=== PATIENT | male | born 1975 | race Caucasian/White ===

== ENCOUNTER 2016-06-13 05:49 | Emergency (ER) | payer SELFPAY ==
--- NOTE | 2016-06-13 07:32 | EDDOCDS ---
Nurse's Notes [facility] Name: Kishore Vanessa Age: 41 yrs Sex: Male : 1975 Arrival Date: 06/13/2016 Time: 05:49 Bed 9 Private MD: Diagnosis: Acute nasopharyngitis [common cold];Low back pain Presentation: 06/13 05:54 Presenting complaint: Patient states: cough for 4-5 days ago fever chills sinus cz headache pt has not had a flu shot. Adult Sepsis Screening: The patient does not have new or worsening altered mentation. Patient's respiratory rate is less than 22. Systolic blood pressure is greater than 100. Patient has a qSOFA score of 0- Negative Sepsis Screen. Suicide/Homicide risk assessment- the patient denies having any suicidal and/or homicidal ideations and does not present with any other emotional, behavioral or mental health complaints. Status: Patient is not a maintenance service dispatcher or dependent. Transition of care: patient was not received from another setting of care. 05:54 Method Of Arrival: Walkin/Carried/Asstd cz 06:01 Acuity: EMILY Level 4 cz Triage Assessment: 05:56 General: Appears uncomfortable. Pain: Location: back Pain currently is 8 out of 10 on a cz pain scale. HIV screening NA for this visit Offered previously. Historical: - Allergies: No known drug Allergies; - Home Meds: 1. none - PMHx: back pain; L4/L5 compound fracture; - PSHx: dental surgery; - Social history: Smoking status: Patient uses tobacco products, light tobacco smoker. No barriers to communication noted, The patient speaks fluent Irish, Speaks appropriately for age. - Family history: Not pertinent. - : The pt / caregiver states he / she is not on anticoagulants. Home medication list is obtained from the patient. - Exposure Risk Screening:: None identified. Screenin:13 Screening information is obtained from the patient. Fall risk: No risks identified. ko2 Assistance ADL's: requires no assistance with activities of daily living. Abuse/DV Screen: The patient / caregiver reports he/she is: not in a situation that causes fear, pain or injury. Nutritional screening: No deficits noted. Advance Directives: Currently, there is no health care proxy. There is no active DNR order. There is no living will. There is no Power of Warp Clamper. home support is adequate. Assessment: 06:12 General: Appears in no apparent distress, Behavior is appropriate for age, cooperative. ko2 Neurological: Level of Consciousness is awake, alert, Oriented to person, place, time. Respiratory: Airway is patent. Derm: Skin is normal. 07:29 General: Appears in no apparent distress, Behavior is cooperative. Pain: Location: jc4 back. Neurological: Level of Consciousness is awake, alert, Oriented to person, place, time. Respiratory: Airway is patent Respiratory effort is even, unlabored, Respiratory pattern is regular, symmetrical. Derm: Skin is pink, warm & dry. Vital Signs: 05:56 BP 131 / 84; Pulse 94; Resp 16; Temp 100.8(T); Pulse Ox 99% on R/A; Weight 74.84 kg; cz Height 5 ft. 6 in. (167.64 cm); 07:18 BP 123 / 90; Pulse 90; Resp 18; Temp 99.2(TE); Pulse Ox 97% on R/A; Pain 9/10; dem1 05:56 Body Mass Index 26.63 (74.84 kg, 167.64 cm) Vitals: 05:56 Log In Time: June 13, 2016 at 05:51. ED Course: 05:50 Patient visited by Jannet Tesfaye. lja 05:50 Patient moved to Waiting lja 05:55 Triage Initiated cz 05:58 Greer Sandoval,RN is Primary Nurse. cz 05:58 Patient moved to 9 cz 06:12 Patient visited by Greer Sandoval RN. ko2 06:55 Gelacio Tello PA is PHCP. btw 06:55 Latanya Lares MD is Attending Physician. btw 06:55 Patient visited by Gelacio Tello PA. btw 07:00 Nanda Hicks, OLIVER is Primary Nurse. jc4 07:06 [facility] [place] into [employer] and attached to record. hs2 07:12 [facility] is Referral Physician. btw 07:18 Patient visited by Parker Monroy. dem1 07:28 The patient / caregiver is instructed regarding the plan of care and ED course. jc4 07:30 No IV's were initiated during this patient's visit. No procedures done that require jc4 assistance. Order Results: There are currently no results for this order. Outcome: 07:12 Discharge ordered by Provider. bt 07:30 Discharge Assessment: Patient awake, alert and oriented x 3. No cognitive and/or jc4 functional deficits noted. Patient verbalized understanding of disposition instructions. patient administered narcotics - no. The following High Risk Discharge criteria are identified: None. Discharged to home ambulatory. Condition: stable. Discharge instructions given to patient, Instructed on discharge instructions, follow up and referral plans. medication usage, Demonstrated understanding of instructions, medications, Pt was receptive of discharge instructions/ teaching. No special radiology studies were completed. Property :Personal belongings accompany Pt. 07:30 Patient left the ED. jc4 Signatures: Den Gonzalez, RN RN cz Gelacio Tello PA PA btw Castle, Jennifer RN RN jc4 Parker Monroy KariRN RN ko2 Brien, Janette Marroquin, Reg Reg hs2 Corrections: (The following items were deleted from the chart) 06:01 05:54 Acuity: EMILY Level 3 cz cz MTDD
--- NOTE | 2016-06-13 07:32 | EDDOCDS ---
Physician Documentation [facility] Name: Kishore Vanessa Age: 41 yrs Sex: Male : 1975 Arrival Date: 06/13/2016 Time: 05:49 Bed 9 Private MD: Disposition: 06/13/16 07:12 Discharged to Home/Self Care. Impression: Acute nasopharyngitis [common cold], Low back pain. - Condition is Stable. - Discharge Instructions: Chronic Back Pain, Upper Respiratory Infection, Adult, Viral Infections, Cool Mist Vaporizers, Back Pain, Adult, [id number]. - Prescriptions for Diclofenac Sodium 75 mg Oral Tablet, Delayed Release (E.C.) - take 1 tablet by ORAL route 2 times per day; 30 tablet. benzonatate 200 mg Oral Capsule - take 1 capsule by ORAL route 3 times per day As needed; 30 capsule. Robaxin- 750 750 mg Oral Tablet - take 1 tablet by ORAL route every 6 hours As needed; 40 tablet. - Medication Reconciliation, Local Pharmacy Hours form. - Follow up: [facility]; When: Call to arrange an appointment; Reason: Further diagnostic work-up, Recheck today's complaints, Continuance of care. - Problem is new. - Symptoms are unchanged. Historical: - Allergies: No known drug Allergies; - Home Meds: 1. none - PMHx: back pain; L4/L5 compound fracture; - PSHx: dental surgery; - Social history: Smoking status: Patient uses tobacco products, light tobacco smoker. No barriers to communication noted, The patient speaks fluent Maori, Speaks appropriately for age. - Family history: Not pertinent. - : The pt / caregiver states he / she is not on anticoagulants. Home medication list is obtained from the patient. - Exposure Risk Screening:: None identified. Vital Signs: 06/13 05:56 BP 131 / 84; Pulse 94; Resp 16; Temp 100.8(T); Pulse Ox 99% on R/A; Weight 74.84 kg / cz 164.99 lbs; Height 5 ft. 6 in. (167.64 cm); 07:18 BP 123 / 90; Pulse 90; Resp 18; Temp 99.2(TE); Pulse Ox 97% on R/A; Pain 9/10; dem1 05:56 Body Mass Index 26.63 (74.84 kg, 167.64 cm) nan MDM: 07:04 Financial registration complete. hs2 07:06 [facility] Payment Agreement was scanned into [employer] and attached to record. hs2 Signatures: Den Gonzalez RN RN cz Gelacio Tello PA PA btw Castle, Jennifer, RN RN jc4 Greer Sandoval RN RN ko2 Janette Molina, Reg Reg hs2 The chart was reviewed and I authenticate all verbal orders and agree with the evaluation and treatment provided.Attachments: 07:06 [facility] Payment Agreement hs2 MTDD
--- NOTE | 2016-06-15 08:32 | EDDOCDS ---
Physician Documentation [facility] Name: Kishore Vanessa Age: 41 yrs Sex: Male : 1975 Arrival Date: 06/13/2016 Time: 05:49 Bed 9 Private MD: Disposition: 06/13/16 07:12 Discharged to Home/Self Care. Impression: Acute nasopharyngitis [common cold], Low back pain. - Condition is Stable. - Discharge Instructions: Chronic Back Pain, Upper Respiratory Infection, Adult, Viral Infections, Cool Mist Vaporizers, Back Pain, Adult, [id number]. - Prescriptions for Diclofenac Sodium 75 mg Oral Tablet, Delayed Release (E.C.) - take 1 tablet by ORAL route 2 times per day; 30 tablet. benzonatate 200 mg Oral Capsule - take 1 capsule by ORAL route 3 times per day As needed; 30 capsule. Robaxin- 750 750 mg Oral Tablet - take 1 tablet by ORAL route every 6 hours As needed; 40 tablet. - Medication Reconciliation, Local Pharmacy Hours form. - Follow up: [facility]; When: Call to arrange an appointment; Reason: Further diagnostic work-up, Recheck today's complaints, Continuance of care. - Problem is new. - Symptoms are unchanged. Historical: - Allergies: No known drug Allergies; - Home Meds: 1. none - PMHx: back pain; L4/L5 compound fracture; - PSHx: dental surgery; - Social history: Smoking status: Patient uses tobacco products, light tobacco smoker. No barriers to communication noted, The patient speaks fluent Hebrew, Speaks appropriately for age. - Family history: Not pertinent. - : The pt / caregiver states he / she is not on anticoagulants. Home medication list is obtained from the patient. - Exposure Risk Screening:: None identified. Vital Signs: 06/13 05:56 BP 131 / 84; Pulse 94; Resp 16; Temp 100.8(T); Pulse Ox 99% on R/A; Weight 74.84 kg / cz 164.99 lbs; Height 5 ft. 6 in. (167.64 cm); 07:18 BP 123 / 90; Pulse 90; Resp 18; Temp 99.2(TE); Pulse Ox 97% on R/A; Pain 9/10; dem1 05:56 Body Mass Index 26.63 (74.84 kg, 167.64 cm) cz MDM: 07:04 Financial registration complete. hs2 07:06 [facility] Payment Agreement was scanned into [employer] and attached to record. hs2 12:33 T-Sheet-- Draft Copy was scanned into [employer] and attached to record. gb Signatures: Den Gonzalez, OLIVER RN cz Lakeisha Babcock, Reg Reg gb Gelacio Tello PA PA btw Castle, Jennifer, RN RN jc4 Greer Sandoval RN RN ko2 Janette Molina, Reg Reg hs2 The chart was reviewed and I authenticate all verbal orders and agree with the evaluation and treatment provided.Attachments: 07:06 [facility] Payment Agreement hs2 12:33 T-Sheet-- Draft Copy gb Chart Complete MTDD
--- NOTE | 2016-06-15 08:32 | EDDOCDS ---
Nurse's Notes [facility] Name: Kishore Vanessa Age: 41 yrs Sex: Male : 1975 Arrival Date: 06/13/2016 Time: 05:49 Bed 9 Private MD: Diagnosis: Acute nasopharyngitis [common cold];Low back pain Presentation: 06/13 05:54 Presenting complaint: Patient states: cough for 4-5 days ago fever chills sinus cz headache pt has not had a flu shot. Adult Sepsis Screening: The patient does not have new or worsening altered mentation. Patient's respiratory rate is less than 22. Systolic blood pressure is greater than 100. Patient has a qSOFA score of 0- Negative Sepsis Screen. Suicide/Homicide risk assessment- the patient denies having any suicidal and/or homicidal ideations and does not present with any other emotional, behavioral or mental health complaints. Status: Patient is not a customer services manager or dependent. Transition of care: patient was not received from another setting of care. 05:54 Method Of Arrival: Walkin/Carried/Asstd cz 06:01 Acuity: EMILY Level 4 cz Triage Assessment: 05:56 General: Appears uncomfortable. Pain: Location: back Pain currently is 8 out of 10 on a cz pain scale. HIV screening NA for this visit Offered previously. Historical: - Allergies: No known drug Allergies; - Home Meds: 1. none - PMHx: back pain; L4/L5 compound fracture; - PSHx: dental surgery; - Social history: Smoking status: Patient uses tobacco products, light tobacco smoker. No barriers to communication noted, The patient speaks fluent Tajik, Speaks appropriately for age. - Family history: Not pertinent. - : The pt / caregiver states he / she is not on anticoagulants. Home medication list is obtained from the patient. - Exposure Risk Screening:: None identified. Screenin:13 Screening information is obtained from the patient. Fall risk: No risks identified. ko2 Assistance ADL's: requires no assistance with activities of daily living. Abuse/DV Screen: The patient / caregiver reports he/she is: not in a situation that causes fear, pain or injury. Nutritional screening: No deficits noted. Advance Directives: Currently, there is no health care proxy. There is no active DNR order. There is no living will. There is no Power of Tariff Counsel. home support is adequate. Assessment: 06:12 General: Appears in no apparent distress, Behavior is appropriate for age, cooperative. ko2 Neurological: Level of Consciousness is awake, alert, Oriented to person, place, time. Respiratory: Airway is patent. Derm: Skin is normal. 07:29 General: Appears in no apparent distress, Behavior is cooperative. Pain: Location: jc4 back. Neurological: Level of Consciousness is awake, alert, Oriented to person, place, time. Respiratory: Airway is patent Respiratory effort is even, unlabored, Respiratory pattern is regular, symmetrical. Derm: Skin is pink, warm & dry. Vital Signs: 05:56 BP 131 / 84; Pulse 94; Resp 16; Temp 100.8(T); Pulse Ox 99% on R/A; Weight 74.84 kg; cz Height 5 ft. 6 in. (167.64 cm); 07:18 BP 123 / 90; Pulse 90; Resp 18; Temp 99.2(TE); Pulse Ox 97% on R/A; Pain 9/10; dem1 05:56 Body Mass Index 26.63 (74.84 kg, 167.64 cm) Vitals: 05:56 Log In Time: June 13, 2016 at 05:51. ED Course: 05:50 Patient visited by Jannet Tesfaye. lja 05:50 Patient moved to Waiting lja 05:55 Triage Initiated cz 05:58 Greer Sandoval,RN is Primary Nurse. cz 05:58 Patient moved to 9 cz 06:12 Patient visited by Greer Sandoval RN. ko2 06:55 Gelacio Tello PA is PHCP. btw 06:55 Latanya Lares MD is Attending Physician. btw 06:55 Patient visited by Gelacio Tello PA. btw 07:00 Nanda Hicks, OLIVER is Primary Nurse. jc4 07:06 [facility] [place] was scanned into [employer] and attached to record. hs2 07:12 [facility] is Referral Physician. btw 07:18 Patient visited by Parker Monroy. dem1 07:28 The patient / caregiver is instructed regarding the plan of care and ED course. jc4 07:30 No IV's were initiated during this patient's visit. No procedures done that require jc4 assistance. 12:33 T-Sheet-- Draft Copy was scanned into [employer] and attached to record. gb Order Results: There are currently no results for this order. Outcome: 07:12 Discharge ordered by Provider. btw 07:30 Discharge Assessment: Patient awake, alert and oriented x 3. No cognitive and/or jc4 functional deficits noted. Patient verbalized understanding of disposition instructions. patient administered narcotics - no. The following High Risk Discharge criteria are identified: None. Discharged to home ambulatory. Condition: stable. Discharge instructions given to patient, Instructed on discharge instructions, follow up and referral plans. medication usage, Demonstrated understanding of instructions, medications, Pt was receptive of discharge instructions/ teaching. No special radiology studies were completed. Property :Personal belongings accompany Pt. 07:30 Patient left the ED. jc4 Signatures: Den Gonzalez, RN RN cz Lakeisha Babcock, Reg Reg gb Gelacio Tello PA PA btw Nanda Hicks RN RN jc4 Parker Monroy KariRN RN ko2 Jannet Tesfaye Hillary, Reg Reg hs2 Corrections: (The following items were deleted from the chart) 06:01 05:54 Acuity: EMILY Level 3 cz cz Chart Complete MTDD
--- NOTE | 2016-06-15 08:32 | EDDOCDS ---
Physician Documentation [facility] Name: Kishore Vanessa Age: 41 yrs Sex: Male : 1975 Arrival Date: 06/13/2016 Time: 05:49 Bed 9 Private MD: Disposition: 06/13/16 07:12 Discharged to Home/Self Care. Impression: Acute nasopharyngitis [common cold], Low back pain. - Condition is Stable. - Discharge Instructions: Chronic Back Pain, Upper Respiratory Infection, Adult, Viral Infections, Cool Mist Vaporizers, Back Pain, Adult, [id number]. - Prescriptions for Diclofenac Sodium 75 mg Oral Tablet, Delayed Release (E.C.) - take 1 tablet by ORAL route 2 times per day; 30 tablet. benzonatate 200 mg Oral Capsule - take 1 capsule by ORAL route 3 times per day As needed; 30 capsule. Robaxin- 750 750 mg Oral Tablet - take 1 tablet by ORAL route every 6 hours As needed; 40 tablet. - Medication Reconciliation, Local Pharmacy Hours form. - Follow up: [facility]; When: Call to arrange an appointment; Reason: Further diagnostic work-up, Recheck today's complaints, Continuance of care. - Problem is new. - Symptoms are unchanged. Historical: - Allergies: No known drug Allergies; - Home Meds: 1. none - PMHx: back pain; L4/L5 compound fracture; - PSHx: dental surgery; - Social history: Smoking status: Patient uses tobacco products, light tobacco smoker. No barriers to communication noted, The patient speaks fluent Malay, Speaks appropriately for age. - Family history: Not pertinent. - : The pt / caregiver states he / she is not on anticoagulants. Home medication list is obtained from the patient. - Exposure Risk Screening:: None identified. Vital Signs: 06/13 05:56 BP 131 / 84; Pulse 94; Resp 16; Temp 100.8(T); Pulse Ox 99% on R/A; Weight 74.84 kg / cz 164.99 lbs; Height 5 ft. 6 in. (167.64 cm); 07:18 BP 123 / 90; Pulse 90; Resp 18; Temp 99.2(TE); Pulse Ox 97% on R/A; Pain 9/10; dem1 05:56 Body Mass Index 26.63 (74.84 kg, 167.64 cm) cz MDM: 07:04 Financial registration complete. hs2 07:06 [facility] Payment Agreement was scanned into [employer] and attached to record. hs2 12:33 T-Sheet-- Draft Copy was scanned into [employer] and attached to record. gb Signatures: Den Gonzalez, OLIVER RN cz Lakeisha Babcock, Reg Reg gb Gelacio Tello PA PA btw Castle, Jennifer, RN RN jc4 Greer Sandoval RN RN ko2 Janette Molina, Reg Reg hs2 The chart was reviewed and I authenticate all verbal orders and agree with the evaluation and treatment provided.Attachments: 07:06 [facility] Payment Agreement hs2 12:33 T-Sheet-- Draft Copy gb Chart Complete MTDD
== END 2016-06-13 07:30 | disposition home or self-care (01) ==
LOC: M ED 05:49
DX: J00 Acute nasopharyngitis [common cold] (principal); B34.9 Viral infection, unspecified; M54.5 Low back pain; F17.210 Nicotine dependence, cigarettes, uncomplicated

== ENCOUNTER 2016-07-28 14:15 | Emergency (ER) | payer SELFPAY ==
--- NOTE | 2016-07-28 15:09 | EDDOCDS ---
Nurse's Notes [facility] Name: Kishore Vanessa Age: 41 yrs Sex: Male : 1975 Arrival Date: 07/28/2016 Time: 14:15 Bed Triage 3 Private MD: NO PRIMARY PHYSICIAN, . Diagnosis: Low back pain Presentation: 07/28 14:29 Presenting complaint: Patient states: Lower back pain for one week, no new injury. ck1 Adult Sepsis Screening: The patient does not have new or worsening altered mentation. Patient's respiratory rate is less than 22. Systolic blood pressure is greater than 100. Patient has a qSOFA score of 0- Negative Sepsis Screen. Suicide/Homicide risk assessment- the patient denies having any suicidal and/or homicidal ideations and does not present with any other emotional, behavioral or mental health complaints. Status: Patient is not a poultry service technician or dependent. Transition of care: patient was not received from another setting of care. 14:29 Acuity: EMILY Level 4 ck1 14:29 Method Of Arrival: Walkin/Carried/Asstd ck1 Triage Assessment: 14:31 General: Appears in no apparent distress, comfortable, Behavior is appropriate for age, ck1 cooperative. Pain: Location: low back area Pain currently is 15 out of 10 on a pain scale. HIV screening NA for this visit Offered previously. Respiratory: Respiratory effort is even, unlabored, Respiratory pattern is regular, symmetrical. Derm: Skin is intact, is healthy with good turgor, Skin is pink, warm & dry. Musculoskeletal: Circulation, motion, and sensation intact Range of motion intact in all extremities. Historical: - Allergies: No known drug Allergies; - Home Meds: 1. ibuprofen 800 mg Oral tab PRN (Last dose: 07/28/2016 06:00) - PMHx: back pain; L4/L5 compound fracture; - PSHx: dental surgery; - Social history: Smoking status: Patient uses tobacco products, heavy tobacco smoker. No barriers to communication noted, The patient speaks fluent Lithuanian, Speaks appropriately for age. - Family history: Not pertinent. - : The pt / caregiver states he / she is not on anticoagulants. Home medication list is obtained from the patient. - Exposure Risk Screening:: None identified. Screenin:07 Screening information is obtained from the patient. Fall risk: No risks identified. ttb Assistance ADL's: requires no assistance with activities of daily living. Abuse/DV Screen: The patient / caregiver reports he/she is: not in a situation that causes fear, pain or injury. Nutritional screening: No deficits noted. Advance Directives: Currently, there is no health care proxy. home support is adequate. Assessment: 14:42 General: Patient ambulating without difficulty. ck1 15:07 Reassessment: Patient appears in no apparent distress at this time. Neurological: Level ttb of Consciousness is awake, alert. Respiratory: No deficits noted. Derm: Skin is normal. Vital Signs: 14:17 BP 131 / 90; Pulse 105; Resp 18; Temp 98.7(T); Pulse Ox 99% on R/A; Weight 77.11 kg; dem1 Height 5 ft. 6 in. (167.64 cm); Pain 8/10; 14:17 Body Mass Index 27.44 (77.11 kg, 167.64 cm) [facility] Vitals: 14:17 Log In Time: July 28, 2016 at 14:15. [facility] ED Course: 14:16 Patient visited by Parker Monroy. dem1 14:16 NO PRIMARY PHYSICIAN, . is Private Physician. dem1 14:16 Patient moved to Waiting dem1 14:18 Patient moved to Pre RCE dem1 14:30 Triage Initiated ck1 14:40 Gelacio Tello PA is PHCP. btw 14:40 Renetta Barreto MD is Attending Physician. btw 14:40 Patient visited by Gelacio Tello PA. btw 14:40 Patient moved to Triage 3 jjr 15:03 [facility] is Referral Physician. btw 15:07 [facility] Payment Agreement was scanned into [employer] and attached to record. lg 15:07 The patient / caregiver is instructed regarding the plan of care and ED course. ttb Accompanied by Significant Other, Patient has correct armband on for positive identification. 15:07 No IV's were initiated during this patient's visit. No procedures done that require ttb assistance. Order Results: There are currently no results for this order. Outcome: 15:04 Discharge ordered by Provider. btw 15:07 Discharge Assessment: Patient awake, alert and oriented x 3. No cognitive and/or ttb functional deficits noted. Patient verbalized understanding of disposition instructions. Patient awake and alert. patient administered narcotics - no. The following High Risk Discharge criteria are identified: None. Discharged to home ambulatory, with significant other. Condition: good Condition: stable Condition: improved. Discharge instructions given to patient, significant other, Instructed on discharge instructions, follow up and referral plans. medication usage, Demonstrated understanding of instructions, medications, no d/d with meds Pt was receptive of discharge instructions/ teaching. Prescriptions given X 2. No special radiology studies were completed. Property :Personal belongings accompany Pt. 15:08 Patient left the ED. ttb Signatures: Rob Crespo, Reg Reg lg Carolann Vargas,RN RN ck1 Sarita Leavitt RN RN Gelacio Montgomery PA PA btw Mack, Demeishia dem1 Conner, Teresa, RN RN ttb YVON
--- NOTE | 2016-07-28 15:09 | EDDOCDS ---
Physician Documentation [facility] Name: Kishore Vanessa Age: 41 yrs Sex: Male : 1975 Arrival Date: 07/28/2016 Time: 14:15 Bed Triage 3 Private MD: NO PRIMARY PHYSICIAN, . Disposition: 07/28/16 15:04 Discharged to Home/Self Care. Impression: Low back pain. - Condition is Stable. - Discharge Instructions: Back Pain, Adult, [id number]. - Prescriptions for Diclofenac Sodium 75 mg Oral Tablet, Delayed Release (E.C.) - take 1 tablet by ORAL route 2 times per day; 30 tablet. Robaxin- 750 750 mg Oral Tablet - take 1 tablet by ORAL route every 6 hours As needed; 40 tablet. - Medication Reconciliation, Local Pharmacy Hours form. - Follow up: [facility]; When: Call to arrange an appointment; Reason: Further diagnostic work-up, Recheck today's complaints, Continuance of care. - Problem is an acute exacerbation. - Symptoms are unchanged. Historical: - Allergies: No known drug Allergies; - Home Meds: 1. ibuprofen 800 mg Oral tab PRN (Last dose: 07/28/2016 06:00) - PMHx: back pain; L4/L5 compound fracture; - PSHx: dental surgery; - Social history: Smoking status: Patient uses tobacco products, heavy tobacco smoker. No barriers to communication noted, The patient speaks fluent Yemeni, Speaks appropriately for age. - Family history: Not pertinent. - : The pt / caregiver states he / she is not on anticoagulants. Home medication list is obtained from the patient. - Exposure Risk Screening:: None identified. Vital Signs: 07/28 14:17 BP 131 / 90; Pulse 105; Resp 18; Temp 98.7(T); Pulse Ox 99% on R/A; Weight 77.11 kg / dem1 170 lbs; Height 5 ft. 6 in. (167.64 cm); Pain 8/10; 14:17 Body Mass Index 27.44 (77.11 kg, 167.64 cm) dem1 MDM: 15:03 Financial registration complete. 15:07 [facility] Payment Agreement was scanned into [employer] and attached to record. Signatures: Rob Crespo, Reg Reg lg Carolann Vargas,RN RN ck1 Gelacio Tello PA PA btw [place] Freedman RN RN ttb The chart was reviewed and I authenticate all verbal orders and agree with the evaluation and treatment provided.Attachments: 15:07 [facility] Payment Agreement lg MTDD
--- NOTE | 2016-07-30 16:09 | EDDOCDS ---
Nurse's Notes [facility] Name: Kishore Vanessa Age: 41 yrs Sex: Male : 1975 Arrival Date: 07/28/2016 Time: 14:15 Bed Triage 3 Private MD: NO PRIMARY PHYSICIAN, . Diagnosis: Low back pain Presentation: 07/28 14:29 Presenting complaint: Patient states: Lower back pain for one week, no new injury. ck1 Adult Sepsis Screening: The patient does not have new or worsening altered mentation. Patient's respiratory rate is less than 22. Systolic blood pressure is greater than 100. Patient has a qSOFA score of 0- Negative Sepsis Screen. Suicide/Homicide risk assessment- the patient denies having any suicidal and/or homicidal ideations and does not present with any other emotional, behavioral or mental health complaints. Status: Patient is not a coordinator of health services or dependent. Transition of care: patient was not received from another setting of care. 14:29 Acuity: EMILY Level 4 ck1 14:29 Method Of Arrival: Walkin/Carried/Asstd ck1 Triage Assessment: 14:31 General: Appears in no apparent distress, comfortable, Behavior is appropriate for age, ck1 cooperative. Pain: Location: low back area Pain currently is 15 out of 10 on a pain scale. HIV screening NA for this visit Offered previously. Respiratory: Respiratory effort is even, unlabored, Respiratory pattern is regular, symmetrical. Derm: Skin is intact, is healthy with good turgor, Skin is pink, warm & dry. Musculoskeletal: Circulation, motion, and sensation intact Range of motion intact in all extremities. Historical: - Allergies: No known drug Allergies; - Home Meds: 1. ibuprofen 800 mg Oral tab PRN (Last dose: 07/28/2016 06:00) - PMHx: back pain; L4/L5 compound fracture; - PSHx: dental surgery; - Social history: Smoking status: Patient uses tobacco products, heavy tobacco smoker. No barriers to communication noted, The patient speaks fluent Chinese, Speaks appropriately for age. - Family history: Not pertinent. - : The pt / caregiver states he / she is not on anticoagulants. Home medication list is obtained from the patient. - Exposure Risk Screening:: None identified. Screenin:07 Screening information is obtained from the patient. Fall risk: No risks identified. ttb Assistance ADL's: requires no assistance with activities of daily living. Abuse/DV Screen: The patient / caregiver reports he/she is: not in a situation that causes fear, pain or injury. Nutritional screening: No deficits noted. Advance Directives: Currently, there is no health care proxy. home support is adequate. Assessment: 14:42 General: Patient ambulating without difficulty. ck1 15:07 Reassessment: Patient appears in no apparent distress at this time. Neurological: Level ttb of Consciousness is awake, alert. Respiratory: No deficits noted. Derm: Skin is normal. Vital Signs: 14:17 BP 131 / 90; Pulse 105; Resp 18; Temp 98.7(T); Pulse Ox 99% on R/A; Weight 77.11 kg; dem1 Height 5 ft. 6 in. (167.64 cm); Pain 8/10; 14:17 Body Mass Index 27.44 (77.11 kg, 167.64 cm) [facility] Vitals: 14:17 Log In Time: July 28, 2016 at 14:15. [facility] ED Course: 14:16 Patient visited by Parker Monroy. dem1 14:16 NO PRIMARY PHYSICIAN, . is Private Physician. dem1 14:16 Patient moved to Waiting dem1 14:18 Patient moved to Pre RCE dem1 14:30 Triage Initiated ck1 14:40 Gelacio Tello PA is PHCP. btw 14:40 Renetta Barreto MD is Attending Physician. btw 14:40 Patient visited by Gelacio Tello PA. btw 14:40 Patient moved to Triage 3 jjr 15:03 [facility] is Referral Physician. btw 15:07 [facility] Payment Agreement was scanned into [employer] and attached to record. lg 15:07 The patient / caregiver is instructed regarding the plan of care and ED course. ttb Accompanied by Significant Other, Patient has correct armband on for positive identification. 15:07 No IV's were initiated during this patient's visit. No procedures done that require ttb assistance. 07/29 10:08 T-Sheet-- Draft Copy was scanned into [employer] and attached to record. gb Order Results: There are currently no results for this order. Outcome: 07/28 15:04 Discharge ordered by Provider. btw 15:07 Discharge Assessment: Patient awake, alert and oriented x 3. No cognitive and/or ttb functional deficits noted. Patient verbalized understanding of disposition instructions. Patient awake and alert. patient administered narcotics - no. The following High Risk Discharge criteria are identified: None. Discharged to home ambulatory, with significant other. Condition: good Condition: stable Condition: improved. Discharge instructions given to patient, significant other, Instructed on discharge instructions, follow up and referral plans. medication usage, Demonstrated understanding of instructions, medications, no d/d with meds Pt was receptive of discharge instructions/ teaching. Prescriptions given X 2. No special radiology studies were completed. Property :Personal belongings accompany Pt. 15:08 Patient left the ED. ttb Signatures: Lakeisha Babcock, Reg Reg gb Rob Crespo, Reg Reg lg Carolann Vargas,RN RN ck1 Sarita Leavitt, RN RN Gelacio Montgomery PA PA btw Mack, [facility] [place] Freedman RN RN ttb Chart Complete [facility]
--- NOTE | 2016-07-30 16:09 | EDDOCDS ---
Physician Documentation [facility] Name: Kishore Vanessa Age: 41 yrs Sex: Male : 1975 Arrival Date: 07/28/2016 Time: 14:15 Bed Triage 3 Private MD: NO PRIMARY PHYSICIAN, . Disposition: 07/28/16 15:04 Discharged to Home/Self Care. Impression: Low back pain. - Condition is Stable. - Discharge Instructions: Back Pain, Adult, [id number]. - Prescriptions for Diclofenac Sodium 75 mg Oral Tablet, Delayed Release (E.C.) - take 1 tablet by ORAL route 2 times per day; 30 tablet. Robaxin- 750 750 mg Oral Tablet - take 1 tablet by ORAL route every 6 hours As needed; 40 tablet. - Medication Reconciliation, Local Pharmacy Hours form. - Follow up: [facility]; When: Call to arrange an appointment; Reason: Further diagnostic work-up, Recheck today's complaints, Continuance of care. - Problem is an acute exacerbation. - Symptoms are unchanged. Historical: - Allergies: No known drug Allergies; - Home Meds: 1. ibuprofen 800 mg Oral tab PRN (Last dose: 07/28/2016 06:00) - PMHx: back pain; L4/L5 compound fracture; - PSHx: dental surgery; - Social history: Smoking status: Patient uses tobacco products, heavy tobacco smoker. No barriers to communication noted, The patient speaks fluent Croatian, Speaks appropriately for age. - Family history: Not pertinent. - : The pt / caregiver states he / she is not on anticoagulants. Home medication list is obtained from the patient. - Exposure Risk Screening:: None identified. Vital Signs: 07/28 14:17 BP 131 / 90; Pulse 105; Resp 18; Temp 98.7(T); Pulse Ox 99% on R/A; Weight 77.11 kg / dem1 170 lbs; Height 5 ft. 6 in. (167.64 cm); Pain 8/10; 14:17 Body Mass Index 27.44 (77.11 kg, 167.64 cm) dem1 MDM: 15:03 Financial registration complete. lg 15:07 [facility] Payment Agreement was scanned into [employer] and attached to record. lg 07/29 10:08 T-Sheet-- Draft Copy was scanned into [employer] and attached to record. gb Signatures: Lakeisha Babcock, Reg Reg gb Rob Crespo, Reg Reg lg Carolann VargasRN RN ck1 Gelacio Tello PA PA btw [place] Freedman, RN RN ttb The chart was reviewed and I authenticate all verbal orders and agree with the evaluation and treatment provided.Attachments: 07/28 15:07 [facility] Payment Agreement lg 07/29 10:08 T-Sheet-- Draft Copy gb Chart Complete MTDD
--- NOTE | 2016-07-30 16:09 | EDDOCDS ---
Physician Documentation [facility] Name: Kishore Vanessa Age: 41 yrs Sex: Male : 1975 Arrival Date: 07/28/2016 Time: 14:15 Bed Triage 3 Private MD: NO PRIMARY PHYSICIAN, . Disposition: 07/28/16 15:04 Discharged to Home/Self Care. Impression: Low back pain. - Condition is Stable. - Discharge Instructions: Back Pain, Adult, [id number]. - Prescriptions for Diclofenac Sodium 75 mg Oral Tablet, Delayed Release (E.C.) - take 1 tablet by ORAL route 2 times per day; 30 tablet. Robaxin- 750 750 mg Oral Tablet - take 1 tablet by ORAL route every 6 hours As needed; 40 tablet. - Medication Reconciliation, Local Pharmacy Hours form. - Follow up: [facility]; When: Call to arrange an appointment; Reason: Further diagnostic work-up, Recheck today's complaints, Continuance of care. - Problem is an acute exacerbation. - Symptoms are unchanged. Historical: - Allergies: No known drug Allergies; - Home Meds: 1. ibuprofen 800 mg Oral tab PRN (Last dose: 07/28/2016 06:00) - PMHx: back pain; L4/L5 compound fracture; - PSHx: dental surgery; - Social history: Smoking status: Patient uses tobacco products, heavy tobacco smoker. No barriers to communication noted, The patient speaks fluent [place], Speaks appropriately for age. - Family history: Not pertinent. - : The pt / caregiver states he / she is not on anticoagulants. Home medication list is obtained from the patient. - Exposure Risk Screening:: None identified. Vital Signs: 07/28 14:17 BP 131 / 90; Pulse 105; Resp 18; Temp 98.7(T); Pulse Ox 99% on R/A; Weight 77.11 kg / dem1 170 lbs; Height 5 ft. 6 in. (167.64 cm); Pain 8/10; 14:17 Body Mass Index 27.44 (77.11 kg, 167.64 cm) dem1 MDM: 15:03 Financial registration complete. lg 15:07 [facility] Payment Agreement was scanned into [employer] and attached to record. lg 07/29 10:08 T-Sheet-- Draft Copy was scanned into [employer] and attached to record. gb Signatures: Lakeisha Babcock, Reg Reg gb Rob Crespo, Reg Reg lg Carolann VargasRN RN ck1 Gelacio Tello PA PA btw [place] Freedman, RN RN ttb The chart was reviewed and I authenticate all verbal orders and agree with the evaluation and treatment provided.Attachments: 07/28 15:07 [facility] Payment Agreement lg 07/29 10:08 T-Sheet-- Draft Copy gb Chart Complete MTDD
== END 2016-07-28 15:08 | disposition home or self-care (01) ==
LOC: M ED 14:15
DX: M54.5 Low back pain (principal); Z72.0 Tobacco use; Z79.899 Other long term (current) drug therapy

== ENCOUNTER 2016-10-25 02:26 | Emergency (ER) | payer SELFPAY ==
[~2016-10-25] VITALS: Ht 167.6 cm; Wt 74.8 kg
[2016-10-25] MEDS ORDERED: IBUP600T26 PO (02:34)
[2016-10-25] MEDS ORDERED: ACET500T37 PO (02:35)
[2016-10-25] MEDS ORDERED: KETOROLAC 60 MG/2 ML VIAL (J1885) IM ONE (02:45)
[2016-10-25] MEDS ORDERED: CARISOPRODOL 350 MG TAB PO ONE (02:45)
[2016-10-25] MEDS ORDERED: SKEL-29 PO (02:50)
[2016-10-25] MEDS ORDERED: NAPR500T PO (02:50)
[2016-10-25 03:41] VITALS: BP 134/72
== END 2016-10-25 03:42 | disposition home or self-care (01) ==
LOC: M ED 03:09
DX: M54.9 Dorsalgia, unspecified (principal); F17.200 Nicotine dependence, unspecified, uncomplicated
CPT/HCPCS: 96372; 99282; J1885

== ENCOUNTER 2017-06-27 11:31 | Emergency (ER) | payer SELFPAY ==
[2017-06-27] MEDS: methylPREDNISolone INJ 125 MG/2 ML VIAL (J2930) IM (12:15)
[2017-06-27] MEDS: PERCOCET 5MG/325MG TAB PO (12:15)
[2017-06-27] MEDS: CYCLOBENZAPRINE 10 MG TAB PO (12:15)
== END 2017-06-27 13:44 | disposition home or self-care (01) ==
LOC: M ED 11:31
DX: M51.36 Other intervertebral disc degeneration, lumbar region (principal); G89.29 Other chronic pain; Z87.891 Personal history of nicotine dependence
CPT/HCPCS: J2930

== ENCOUNTER 2018-01-28 14:33 | Emergency (ER) | payer SELFPAY ==
[2018-01-28] MEDS: KETOROLAC TROMETHAMINE 10 MG TAB PO (17:01)
[2018-01-28] MEDS: BACLOFEN 10 MG TAB PO (17:01)
== END 2018-01-28 17:05 | disposition home or self-care (01) ==
LOC: M ED 14:33
DX: M54.5 Low back pain (principal); G89.29 Other chronic pain; Z87.81 Personal history of (healed) traumatic fracture
CPT/HCPCS: 99283

== ENCOUNTER 2018-02-27 22:50 | Emergency (ER) | payer SELFPAY ==
[2018-02-28] MEDS: METHOCARBAMOL 750 MG TAB PO (01:01)
[2018-02-28] MEDS: KETOROLAC TROMETHAMINE 10 MG TAB PO (01:01)
== END 2018-02-28 02:31 | disposition left against medical advice (07) ==
LOC: M ED 22:50
DX: G89.29 Other chronic pain (principal); M54.5 Low back pain; Z87.828 Personal history of other (healed) physical injury and trauma; F17.210 Nicotine dependence, cigarettes, uncomplicated
CPT/HCPCS: 99282

== ENCOUNTER 2018-11-05 17:57 | Emergency (ER) | payer SELFPAY ==
[~2018-11-05] VITALS: Ht 167.6 cm; Wt 77.3 kg
[~2018-11-05 17:57] MED LIST: ACET-683 PO; BACL10TA2 PO; CYCL10TA PO; DICL75TA PO; IBUP-1022 PO; IBUP80TA PO; NAPR-837 PO; PERC5TAB12 PO; ROBA500T PO; SKEL800T97 PO
[2018-11-05] MEDS ORDERED: CARISOPRODOL 350 MG TAB PO ONE (21:15)
[2018-11-05] MEDS ORDERED: IBUPROFEN 600 MG TAB PO ONE (21:15)
[2018-11-05] MEDS ORDERED: SOMA350T PO (21:16)
[2018-11-05] MEDS ORDERED: IBUP-1022 PO (21:16)
[2018-11-05 21:32] VITALS: BP 139/96
== END 2018-11-05 21:33 | disposition home or self-care (01) ==
LOC: M ED 17:57
DX: M54.12 Radiculopathy, cervical region (principal); F17.210 Nicotine dependence, cigarettes, uncomplicated

== ENCOUNTER → 2021-11-22 | Outpatient (CLI) | payer MEDICAID, OTHER ==
[~2021-11-22] MED LIST changes: +CYCL-707 PO; -CYCL10TA PO; +SOMA350T PO
== END ==
LOC: M PAIN 13:00
PROVIDERS: ATTEND Nurse Practitioner Family
DX: M54.50 Low back pain, unspecified (principal); G89.29 Other chronic pain; J45.909 Unspecified asthma, uncomplicated; F17.210 Nicotine dependence, cigarettes, uncomplicated; E66.01 Morbid (severe) obesity due to excess calories; Z68.42 Body mass index [BMI] 45.0-49.9, adult; Z79.899 Other long term (current) drug therapy

== ENCOUNTER 2023-04-22 04:22 | Emergency (ER) | payer OTHER ==
[2023-04-22] MEDS ORDERED: DALBAVANCIN 1,500 MG in D5W 250 ML IV ONE (04:50)
[2023-04-22] MEDS ORDERED: NS 500 ML IV ONE (04:50)
[2023-04-22 05:10] LABS: BASO % 0.4 % (0.0-1.0); EOS % 0.1 % (0.0-3.0); HEMATOCRIT 40.6 % (42.0-52.0); HEMOGLOBIN 13.3 g/dl (13.5-17.5); LYMPH # 2.2 10^3/uL (1.5-5.0); MEAN CORPUSCULAR HEMOGLOBIN 27.8 pg (27.0-33.0); MEAN CORPUSCULAR HGB CONC 32.8 g/dl (32.0-36.5); MEAN CORPUSCULAR VOLUME 84.9 fl (80.0-96.0); MONO # 0.8 10^3/uL (0.0-0.8); NEUTROPHILS # 6.1 10^3/uL (1.5-8.5); NEUTROPHILS % 66.2 % (36.0-66.0); PLATELET COUNT, AUTOMATED 230 10^3/uL (150-450); RED BLOOD COUNT 4.78 10^6/uL (4.30-6.10); WHITE BLOOD COUNT 9.2 10^3/uL (4.0-10.0)
[2023-04-22] MEDS ORDERED: KETOROLAC 30 MG/ML 1ML VIAL IV ONE (05:20)
[2023-04-22] MEDS ORDERED: ISOVUE-370 76% 100ML VIAL As Ordered ONE (05:28)
[2023-04-22] MEDS ORDERED: BOOSTRIX VACCINE (TETANUS/DIPHTH/ACEL. PERTUSSIS) 0.5ML SYR IM.IMMUN ONE (05:30)
[2023-04-22 05:34] LABS: BLOOD UREA NITROGEN 18 MG/DL (9-23); CALCIUM LEVEL 9.1 MG/DL (8.5-10.1); CARBON DIOXIDE LEVEL 27 MMOL/L (20-31); CHLORIDE LEVEL 108 MMOL/L (98-107); CREATININE FOR GFR 0.84 MG/DL (0.70-1.30); GLOMERULAR FILTRATION RATE > 60.0 (>60); GLUCOSE, FASTING 114 MG/DL (60-100); POTASSIUM SERUM 4.3 MMOL/L (3.5-5.1); SODIUM LEVEL 143 MMOL/L (136-145)
[2023-04-22 07:10] VITALS: BP 103/70; TEMP 97.8; O2SAT 98
== END 2023-04-22 07:20 | disposition home or self-care (01) ==
LOC: M ED 04:22
DX: S61.411A Laceration without foreign body of right hand, initial encounter (principal); L03.113 Cellulitis of right upper limb; Y92.410 Unspecified street and highway as the place of occurrence of the external cause; F17.200 Nicotine dependence, unspecified, uncomplicated
CPT/HCPCS: 73201; 80047; 80048; 85025; 87040; 90471; 90715; 96361; 96365; 96375; 99283; J0875; J1885; Q9967

== ENCOUNTER 2024-07-03 12:17 | Emergency (ER) | payer OTHER ==
[~2024-07-03] VITALS: Ht 167.6 cm; Wt 69.7 kg
[2024-07-03 12:19] VITALS: BP 138/92; TEMP 99.7; O2SAT 100
[2024-07-03] MEDS ORDERED: BUPR1FIL3 (12:26)
== END 2024-07-03 13:20 | disposition left against medical advice (07) ==
LOC: M ED 12:17
DX: Z53.21 Procedure and treatment not carried out due to patient leaving prior to being seen by health care provider (principal)